=== PATIENT | male | born 1985 | race Caucasian/White ===

== ENCOUNTER 2021-05-13 14:00 | Inpatient (IN) | payer MEDICAID ==
[~2021-05-13] VITALS: Ht 193 cm; Wt 104.5 kg
[2021-05-13 14:23] LABS: BASOPHILS # (AUTO) 0.1 X10'3 (0-0.2); BASOPHILS % (AUTO) 1.2 % (0-1); EOSINOPHILS # (AUTO) 0.2 X10'3 (0-0.9); EOSINOPHILS % (AUTO) 2.1 % (0-6); HEMATOCRIT 44.8 % (42.0-52.0); LYMPHOCYTES % (AUTO) 26.3 % (21-51); MEAN CORPUSCULAR HEMOGLOBIN 32.9 PG (27.0-31.0); MEAN CORPUSCULAR HGB CONC 33.5 g/dL (33.0-36.5); MEAN CORPUSCULAR VOLUME 98.2 FL (78-98); MEAN PLATELET VOLUME 7.8 FL (7.4-10.4); MONOCYTES # (AUTO) 0.6 X10'3 (0-0.9); MONOCYTES % (AUTO) 8.5 % (2-12); NEUTROPHILS # (AUTO) 4.6 X10'3 (1.8-7.7); NEUTROPHILS % (AUTO) 61.9 % (42-75); PLATELET COUNT 308 X10'3 (140-440); RED BLOOD COUNT 4.56 X10'6 (4.70-6.10); RED CELL DISTRIBUTION WIDTH 14.1 % (11.5-14.5); WHITE BLOOD COUNT 7.4 X10'3 (4.5-11.0)
[2021-05-13 14:36] LABS: ALANINE AMINOTRANSFERASE 149 U/L (12-78); ALBUMIN 3.2 G/DL (3.4-5.0); ALBUMIN/GLOBULIN RATIO 0.9 (1.1-1.5); ALKALINE PHOSPHATASE 85 IU/L (46-116); ANION GAP 11 (8-16); ASPARTATE AMINO TRANSFERASE 136 U/L (10-37); BILIRUBIN,TOTAL 1.5 MG/DL (0.1-1.0); BLOOD UREA NITROGEN 18 MG/DL (7-18); BUN/CREATININE RATIO 14.4 (5.4-32.0); CALCIUM 8.7 MG/DL (8.5-10.1); CHLORIDE 108 MMOL/L (99-107); CREATININE 1.25 MG/DL (0.60-1.10); GLUCOSE 113 MG/DL (70-104); POTASSIUM 4.2 MMOL/L (3.5-5.1); SODIUM 146 MMOL/L (135-145); TOTAL CARBON DIOXIDE 27.1 MMOL/L (24-32); TOTAL PROTEIN 6.9 G/DL (6.4-8.2); eGFR 65 ML/MIN
[2021-05-13] MEDS ORDERED: aspirin 81mg tab.chew PO ONE (17:55)
[2021-05-13] MEDS: nitroGLYCERIN 0.4mg SUBLingual tab SL PRN ×2 (17:59→23:57)
[2021-05-13] MEDS ORDERED: ondansetron/PF 4mg/2ml inj IV ONE (18:00)
[2021-05-13] MEDS ORDERED: normal saline 1000ML IV soln IVB ONE (18:00)
[2021-05-13] MEDS: morphine 4 MG/ML inj SYRINge IV PRN ×2 (18:07→19:46)
[2021-05-13 18:18] LABS: LIPASE 419 U/L (73-393)
[2021-05-13] MEDS ORDERED: enoxaparin 100mg/ml syringe SUBCUT ONE (18:35)
[2021-05-13] MEDS ORDERED: furosemide 10 MG/1 ML 10ml inj IV ONE (19:15)
[2021-05-13] MEDS ORDERED: temazepam 15mg capsule PO PRN (21:00)
[2021-05-13] MEDS ORDERED: normal saline 1000ml 1,000 ML IV SCH (21:30)
[2021-05-13] MEDS ORDERED: ondansetron/PF 4mg/2ml inj IV PRN (21:30)
[2021-05-13] MEDS ORDERED: acetaminophen 650mg rectal suppository RC PRN (21:30)
[2021-05-13] MEDS ORDERED: acetaminophen 325mg tablet PO PRN ×2 (21:30)
[2021-05-13] MEDS ORDERED: mag hydrox/Alum hydrox/simeth 30ml oral suspension PO PRN (21:30)
[2021-05-13] MEDS ORDERED: magnesium hydroxide 30ml (MOM) UD suspension PO PRN (21:30)
[2021-05-13] MEDS ORDERED: diphenhydrAMINE 25mg capsule PO PRN (21:30)
[2021-05-13] MEDS ORDERED: morphine 2 MG/ML inj. syringe IV PRN (21:30)
[2021-05-13] MEDS ORDERED: diphenhydrAMINE 50 mg/ml inj IV PRN (21:30)
[2021-05-13] MEDS ORDERED: HYDROcodone/acetaminophen 10/325mg tab PO PRN (21:30)
[2021-05-13] MEDS ORDERED: ondansetron 4mg rapidly disintigrating tab PO PRN (21:30)
[2021-05-13] MEDS ORDERED: HYDROmorphone inj. 0.5 MG/0.5 ML DISP.SYRIN IV PRN (21:30)
[2021-05-13] MEDS ORDERED: HYDROcodone/acetaminophen 5mg/325mg tablet PO PRN (21:30)
[2021-05-13] MEDS ORDERED: bisacodyl 10mg suppository rectal RC PRN (21:30)
[2021-05-13 21:51] LABS: HEMOGLOBIN A1C 5.8 % (4.5-6.2)
[2021-05-13 22:03] LABS: MAGNESIUM 2.3 MG/DL (1.5-2.4); PHOSPHORUS 5.1 MG/DL (2.3-4.5)
[2021-05-13 23:21] LABS: D-DIMER 1.36 MG/L FEU (0-0.50)
[2021-05-14] MEDS: nitroGLYCERIN 0.4mg SUBLingual tab SL PRN ×2 (01:00→01:08)
[2021-05-14] MEDS: heparin, porcine 5000 units/ml vial SQ SCH ×3 (01:03→17:41)
--- NOTE | 2021-05-14 01:10 | NUR ---
Patient experiencing chest-like pain again, which has been intermittent/constant throughout day per patient. Patient given Nitrostat and [place] for pain. Patient reportedly had back surgery in the past, and per him, feels like it's uncertain if it's cardiac or surgery related.
[2021-05-14 03:25] LABS: BASOPHILS # (AUTO) 0.1 X10'3 (0-0.2); BASOPHILS % (AUTO) 1.2 % (0-1); EOSINOPHILS # (AUTO) 0.1 X10'3 (0-0.9); EOSINOPHILS % (AUTO) 2.1 % (0-6); HEMATOCRIT 43.8 % (42.0-52.0); HEMOGLOBIN 14.7 g/dl (14.0-17.9); LYMPHOCYTES # (AUTO) 1.4 X10'3 (1.1-4.8); LYMPHOCYTES % (AUTO) 21.1 % (21-51); MEAN CORPUSCULAR HEMOGLOBIN 33.1 PG (27.0-31.0); MEAN CORPUSCULAR HGB CONC 33.5 g/dL (33.0-36.5); MEAN CORPUSCULAR VOLUME 98.6 FL (78-98); MEAN PLATELET VOLUME 7.8 FL (7.4-10.4); MONOCYTES # (AUTO) 0.4 X10'3 (0-0.9); MONOCYTES % (AUTO) 6.7 % (2-12); NEUTROPHILS # (AUTO) 4.5 X10'3 (1.8-7.7); NEUTROPHILS % (AUTO) 68.9 % (42-75); PLATELET COUNT 281 X10'3 (140-440); RED BLOOD COUNT 4.44 X10'6 (4.70-6.10); RED CELL DISTRIBUTION WIDTH 14.1 % (11.5-14.5); WHITE BLOOD COUNT 6.5 X10'3 (4.5-11.0)
[2021-05-14 03:43] LABS: ALANINE AMINOTRANSFERASE 150 U/L (12-78); ALBUMIN 3.4 G/DL (3.4-5.0); ALBUMIN/GLOBULIN RATIO 0.9 (1.1-1.5); ALKALINE PHOSPHATASE 85 IU/L (46-116); ANION GAP 12 (8-16); ASPARTATE AMINO TRANSFERASE 142 U/L (10-37); BLOOD UREA NITROGEN 19 MG/DL (7-18); BUN/CREATININE RATIO 16.1 (5.4-32.0); CALCIUM 8.4 MG/DL (8.5-10.1); CHLORIDE 103 MMOL/L (99-107); CHOL/HDL RATIO 3.4 (0.00-4.99); CHOLESTEROL 122 MG/DL (0-200); CREATININE 1.18 MG/DL (0.60-1.10); GLUCOSE 106 MG/DL (70-104); HDL CHOLESTEROL 36 MG/DL (35-60); LDL CHOLESTEROL 68 MG/DL (50-100); POTASSIUM 3.7 MMOL/L (3.5-5.1); SODIUM 140 MMOL/L (135-145); TOTAL CARBON DIOXIDE 25.2 MMOL/L (24-32); TOTAL PROTEIN 7.1 G/DL (6.4-8.2); TRIGLYCERIDES 138 MG/DL (20-135); eGFR 69 ML/MIN
[2021-05-14] MEDS: morphine 2 MG/ML inj. syringe IV PRN ×3 (07:20→20:06)
[2021-05-14] MEDS ORDERED: aspirin 81mg, enteric-coated 1 TAB TABLET.DR PO SCH (08:00)
[2021-05-14] MEDS: nitroGLYCERIN 0.2mg/hour patch TD SCH (08:37)
[2021-05-14] MEDS: docusate sod 100mg capsule PO SCH ×2 (08:37→20:03)
[2021-05-14] MEDS: pantoprazole 40mg Tablet.DR PO SCH (08:37)
[2021-05-14 09:30] VITALS: BP 148/100
[2021-05-14 12:10] VITALS: BP 149/102
[2021-05-14] MEDS ORDERED: FURO20TA4 PO (14:48)
[2021-05-14] MEDS ORDERED: CARV6.253 PO (14:48)
[2021-05-14] MEDS ORDERED: LISI10TA27 PO (14:48)
[2021-05-14] MEDS ORDERED: ATOR-2 PO (14:48)
[2021-05-14] MEDS ORDERED: ASPI-1397 PO (14:48)
[2021-05-14] MEDS ORDERED: verapamil 2.5 mg/ml inj IV ONE (14:59)
[2021-05-14] MEDS ORDERED: heparin 1,000unit/ml 10ml vial 10 ML ONE (14:59)
[2021-05-14] MEDS ORDERED: nitroGLYCERIN-Tridil 50MG/D5W 250 ML IV ONE (14:59)
[2021-05-14] MEDS ORDERED: iohexol 350MG/ML 100ml bottle IV ONE (15:00)
[2021-05-14] MEDS ORDERED: midazolam 1 mg/ML 2ml injection ONE (15:16)
[2021-05-14] MEDS ORDERED: fentaNYL/PF 50MCG/1 ML 2ML syringe ONE (15:16)
[2021-05-14] MEDS ORDERED: LIDOcaine 1% (10mg/ml)w/preservative injection 20ml MDV ONE (15:34)
[2021-05-14 16:53] VITALS: BP 145/105
[2021-05-14 18:00] VITALS: BP 147/111
--- NOTE | 2021-05-14 18:30 | NUR ---
Pt in bed AAOX4 post cardiac cath, denied any discomfort now. right wrist, cath insertion site, pressure cassette with air applied to site. 3 ml of air removed at this time.
--- NOTE | 2021-05-14 18:45 | NUR ---
Pt self removed air from the cassette and stated that he knows how to do it. Brachial pulse felt, pt denied numbness and tingling.
--- NOTE | 2021-05-14 19:00 | NUR ---
Air removed from right brachial cassette, and dressing removed. Continue to monitor pt for pain , numbness and tingling.
[2021-05-14] MEDS: carvedilol 6.25mg tablet PO SCH (20:03)
[2021-05-14 22:00] VITALS: BP 129/88
[2021-05-15] MEDS: morphine 2 MG/ML inj. syringe IV PRN (00:32)
[2021-05-15] MEDS: heparin, porcine 5000 units/ml vial SQ SCH ×2 (00:48→07:50)
--- NOTE | 2021-05-15 00:49 | NUR ---
Pt is sitting in chair by his bed , reported having pain to his right arm from cath instertion site to his mid chest ; IV medication given. Pt is able to move his extremity, denied numbness and tingling.
[2021-05-15] MEDS ORDERED: HYDROcodone/acetaminophen 10/325mg tab PO PRN ×2 (03:25)
--- NOTE | 2021-05-15 05:00 | NUR ---
Pt ambulating in the hallway, denied any pain at this time. Instructed to go back to his room for lab draw. Pt remained in stable condition.
[2021-05-15 06:00] VITALS: BP 125/84
[2021-05-15 06:12] LABS: BASOPHILS # (AUTO) 0.1 X10'3 (0-0.2); BASOPHILS % (AUTO) 0.9 % (0-1); EOSINOPHILS # (AUTO) 0.1 X10'3 (0-0.9); EOSINOPHILS % (AUTO) 2.3 % (0-6); HEMATOCRIT 42.8 % (42.0-52.0); HEMOGLOBIN 14.4 g/dl (14.0-17.9); LYMPHOCYTES # (AUTO) 1.1 X10'3 (1.1-4.8); MEAN CORPUSCULAR HEMOGLOBIN 32.8 PG (27.0-31.0); MEAN CORPUSCULAR HGB CONC 33.6 g/dL (33.0-36.5); MEAN CORPUSCULAR VOLUME 97.8 FL (78-98); MEAN PLATELET VOLUME 8.1 FL (7.4-10.4); MONOCYTES # (AUTO) 0.5 X10'3 (0-0.9); MONOCYTES % (AUTO) 8.1 % (2-12); NEUTROPHILS # (AUTO) 4.4 X10'3 (1.8-7.7); NEUTROPHILS % (AUTO) 70.7 % (42-75); PLATELET COUNT 259 X10'3 (140-440); RED BLOOD COUNT 4.38 X10'6 (4.70-6.10); RED CELL DISTRIBUTION WIDTH 13.9 % (11.5-14.5); WHITE BLOOD COUNT 6.2 X10'3 (4.5-11.0)
[2021-05-15 06:27] LABS: ALANINE AMINOTRANSFERASE 115 U/L (12-78); ALBUMIN 3.2 G/DL (3.4-5.0); ALBUMIN/GLOBULIN RATIO 0.9 (1.1-1.5); ALKALINE PHOSPHATASE 80 IU/L (46-116); ANION GAP 10 (8-16); ASPARTATE AMINO TRANSFERASE 95 U/L (10-37); BILIRUBIN,TOTAL 3.7 MG/DL (0.1-1.0); BLOOD UREA NITROGEN 24 MG/DL (7-18); CALCIUM 8.7 MG/DL (8.5-10.1); CHLORIDE 100 MMOL/L (99-107); CREATININE 1.33 MG/DL (0.60-1.10); GLUCOSE 130 MG/DL (70-104); POTASSIUM 4.5 MMOL/L (3.5-5.1); SODIUM 136 MMOL/L (135-145); TOTAL CARBON DIOXIDE 26.5 MMOL/L (24-32); TOTAL PROTEIN 6.6 G/DL (6.4-8.2); eGFR 61 ML/MIN
--- NOTE | 2021-05-15 07:31 | NUR ---
PAGER ID: [phone] MESSAGE: [id number]. Michelet Boyle. Wants to leave [place]. Tiffanie [phone]
[2021-05-15] MEDS: carvedilol 6.25mg tablet PO SCH (07:42)
[2021-05-15] MEDS: pantoprazole 40mg Tablet.DR PO SCH (07:43)
[2021-05-15 07:44] VITALS: BP_SYST 125
[2021-05-15] MEDS: docusate sod 100mg capsule PO SCH (07:44)
[2021-05-15] MEDS: nitroGLYCERIN 0.2mg/hour patch TD SCH (07:50)
--- NOTE | 2021-05-15 07:51 | NUR ---
removed nitro patch from left chest
[2021-05-15] MEDS ORDERED: lisinopril 10 MG tablet PO SCH (08:00)
[2021-05-15] MEDS ORDERED: furosemide 20MG tablet PO SCH (08:00)
[2021-05-15] MEDS ORDERED: aspirin 81mg, enteric-coated 1 TAB TABLET.DR PO SCH (08:00)
[2021-05-15] MEDS ORDERED: atorvastatin 20mg tablet PO SCH (08:00)
[2021-05-15] MEDS ORDERED: SPIR25TA PO (08:15)
[2021-05-15] MEDS ORDERED: spironolactone 25 MG tablet PO SCH (08:30)
--- NOTE | 2021-05-15 08:30 | NUR ---
pt has walked around in hallway and room ad solomon.
--- NOTE | 2021-05-15 08:35 | NUR ---
Stable for d/c per MD orders reviewed all d/c ppwk with pt. pt verbalized understanding. PIV was removed, pt tolerated well. All personal belongings were sent with patient. Tele box # [id number] was removed and put by [facility] desk. New RX sent to [facility] in [place]. Pt was able to walk out with direction to elevator. His GF will pick him up. He just wants to go so he can smoke a cigarette.
== END 2021-05-15 12:39 | disposition home or self-care (01) | DRG 190 ==
LOC: ER 14:01 → ED HOLD 21:31 → MED 3N 05-14 07:02
PROVIDERS: ADMIT Family Medicine; ATTEND Internal Medicine
PROC: 4A023N7 Measurement of Cardiac Sampling and Pressure, Left Heart, Percutaneous Approach (ICD-10-PCS; principal; 2021-05-14)
PROC: B2111ZZ Fluoroscopy of Multiple Coronary Arteries using Low Osmolar Contrast (ICD-10-PCS; 2021-05-14)
PROC: B2151ZZ Fluoroscopy of Left Heart using Low Osmolar Contrast (ICD-10-PCS; 2021-05-14)
DX: I21.4 Non-ST elevation (NSTEMI) myocardial infarction (principal); I50.23 Acute on chronic systolic (congestive) heart failure; R18.8 Other ascites; I27.20 Pulmonary hypertension, unspecified; K80.10 Calculus of gallbladder with chronic cholecystitis without obstruction; E78.5 Hyperlipidemia, unspecified; K76.0 Fatty (change of) liver, not elsewhere classified; I11.0 Hypertensive heart disease with heart failure; K57.30 Diverticulosis of large intestine without perforation or abscess without bleeding; F10.10 Alcohol abuse, uncomplicated; R10.9 Unspecified abdominal pain; Z53.9 Procedure and treatment not carried out, unspecified reason; Z20.822 Contact with and (suspected) exposure to COVID-19; R74.01 Elevation of levels of liver transaminase levels; F17.200 Nicotine dependence, unspecified, uncomplicated; I20.0 Unstable angina; Z82.49 Family history of ischemic heart disease and other diseases of the circulatory system; Z98.1 Arthrodesis status; Z83.3 Family history of diabetes mellitus; Z79.899 Other long term (current) drug therapy; Z88.0 Allergy status to penicillin
CPT/HCPCS: 36415; 71045; 74176; 80053; 80061; 83036; 83690; 83735; 83880; 84100; 84443; 84484; 85025; 85379; 87635; 93005; 93306; 93458; 99152; 99285; A4620; A5120; C1769; C1894; C9803; G0378; J1644; J1650; J1940; J2250; J2270; J2405; J3010; J3490; J7030; Q9967